=== PATIENT | female | born 1990 | race Two or more races ===

== ENCOUNTER 2022-07-11 09:20 | Outpatient (RCR) | payer OTHER, SELFPAY | END 2022-08-02 14:05 | disposition home or self-care (01) | LOC: HO.PT 09:20 | PROVIDERS: PCP Psychiatry & Neurology Psychiatry; Visit Provider Obstetrics & Gynecology | DX: M62.9 Disorder of muscle, unspecified (principal) | CPT/HCPCS: 97112; 97161 ==